=== PATIENT | male | born 1965 | race Caucasian/White ===

== ENCOUNTER → 2022-01-26 | Outpatient (CLI) | payer OTHER ==
[2022-01-26 12:35] LABS: BUN/CREATININE RATIO 16 (0-10)
== END ==
LOC: LAB 10:45
PROVIDERS: Internal Medicine Nephrology
DX: R80.9 Proteinuria, unspecified (principal); M60.9 Myositis, unspecified; E83.52 Hypercalcemia
CPT/HCPCS: 36415; 80053; 82550; 82570; 83970; 84156

== ENCOUNTER → 2022-01-30 | Outpatient (CLI) | payer OTHER | LOC: EXRD 11:03 | DX: R80.9 Proteinuria, unspecified (principal); N28.1 Cyst of kidney, acquired | CPT/HCPCS: 76775 ==

== ENCOUNTER → 2022-03-28 | Outpatient (CLI) | payer OTHER | LOC: KOH-I 02-26 10:00 | DX: E23.7 Disorder of pituitary gland, unspecified (principal) | CPT/HCPCS: 76536 ==

== ENCOUNTER → 2022-04-16 | Outpatient (CLI) | payer OTHER ==
[2022-04-16 09:10] LABS: HEMOGLOBIN 12.6 gm/dl (14.0-17.5); RED BLOOD COUNT 4.61 M/UL (4.20-5.50); WHITE BLOOD COUNT 10.8 K/UL (4.5-11.0)
== END ==
LOC: LAB 08:40
PROVIDERS: Nurse Practitioner Primary Care
DX: I10 Essential (primary) hypertension (principal); R31.9 Hematuria, unspecified; E78.5 Hyperlipidemia, unspecified; E11.9 Type 2 diabetes mellitus without complications; R80.9 Proteinuria, unspecified
CPT/HCPCS: 36415; 85025; 85610; 85730

== ENCOUNTER → 2022-04-18 | Outpatient (CLI) | payer OTHER | LOC: CT 04-11 11:30 | DX: F17.210 Nicotine dependence, cigarettes, uncomplicated (principal); R22.1 Localized swelling, mass and lump, neck; E86.0 Dehydration; R59.0 Localized enlarged lymph nodes | CPT/HCPCS: 70492; 71271; 96360; 96361; Q9967 ==

== ENCOUNTER → 2022-04-19 | Outpatient (CLI) | payer OTHER | LOC: US 09:37 | DX: R22.1 Localized swelling, mass and lump, neck (principal); N18.9 Chronic kidney disease, unspecified; E55.9 Vitamin D deficiency, unspecified; E03.9 Hypothyroidism, unspecified; R80.9 Proteinuria, unspecified; E78.5 Hyperlipidemia, unspecified ==

== ENCOUNTER → 2022-05-18 | Outpatient (CLI) | payer OTHER ==
[~2022-05-18] MED LIST: AMMONIUM LACTATE; ASPIRIN81 MG PO; BACLOFEN10 MG PO; BENZTROPINE MESY1 MG PO; BEVESPI AEROS10.7 GM INH; CRESTOR20 MG PO; GLUCOPHAGE 500500 MG PO; LEVEMIR FL100 UNIT/1 SQ; LIDOCAINE; LOPRESSOR 50 MG50 MG PO; NITROSTAT0.4 MG SL; NOVOLOG FL100 UNIT/1 INJ; PROTONIX40 MG PO; PROVENTIL HFA6.7 GM INH; PROZAC40 MG PO; RAMIPRIL2.5 MG PO; RISPERDAL37.5 MG/2 IM; RISPERIDONE1 MG PO; SEROQUEL200 MG PO; SYNTHROID50 MCG PO; TRADJENTA5 MG PO; TYLENOL EXTRA500 MG PO; VASCEPA1 GM PO; VITAMIN D3125 MCG PO; VOLTAREN ARTHRI20 GM TOP; [UNRECOGNIZED DRUG - OTHER]; [UNRECOGNIZED DRUG - OTHER] MC
[2022-05-18 14:47] LABS: HEMOGLOBIN 13.2 gm/dl (14.0-17.5); RED BLOOD COUNT 4.72 M/UL (4.20-5.50); WHITE BLOOD COUNT 15.5 K/UL (4.5-11.0)
[2022-05-18 15:09] LABS: BUN/CREATININE RATIO 14 (0-10)
== END ==
LOC: OPSV2 12:30
PROVIDERS: Anesthesiology
DX: Z01.818 Encounter for other preprocedural examination (principal)
CPT/HCPCS: 80048; 85025; 93005

== ENCOUNTER → 2022-05-22 | Day surgery (SDC) | payer OTHER | END | disposition home or self-care (01) | LOC: OR 07:11 | DX: C77.0 Secondary and unspecified malignant neoplasm of lymph nodes of head, face and neck (principal); C80.1 Malignant (primary) neoplasm, unspecified; I10 Essential (primary) hypertension; E78.5 Hyperlipidemia, unspecified; J45.909 Unspecified asthma, uncomplicated; K21.9 Gastro-esophageal reflux disease without esophagitis; E66.01 Morbid (severe) obesity due to excess calories; F20.9 Schizophrenia, unspecified; E11.9 Type 2 diabetes mellitus without complications; E07.9 Disorder of thyroid, unspecified; Z88.6 Allergy status to analgesic agent; Z79.82 Long term (current) use of aspirin; Z79.4 Long term (current) use of insulin; Z79.899 Other long term (current) drug therapy; Z68.34 Body mass index [BMI] 34.0-34.9, adult | CPT/HCPCS: 82962; J0690; J1100; J2001; J2250; J2405; J2704; J3010 ==

== ENCOUNTER → 2022-06-21 | Day surgery (SDC) | payer OTHER | END | disposition home or self-care (01) | LOC: OR 05:30 | DX: C76.0 Malignant neoplasm of head, face and neck (principal); I10 Essential (primary) hypertension; J44.9 Chronic obstructive pulmonary disease, unspecified; E11.42 Type 2 diabetes mellitus with diabetic polyneuropathy; E78.00 Pure hypercholesterolemia, unspecified; K21.9 Gastro-esophageal reflux disease without esophagitis; E66.01 Morbid (severe) obesity due to excess calories; E07.9 Disorder of thyroid, unspecified; F20.9 Schizophrenia, unspecified; F17.210 Nicotine dependence, cigarettes, uncomplicated; Z68.33 Body mass index [BMI] 33.0-33.9, adult; Z79.82 Long term (current) use of aspirin; Z79.4 Long term (current) use of insulin; Z79.891 Long term (current) use of opiate analgesic; Z79.899 Other long term (current) drug therapy; Z88.6 Allergy status to analgesic agent | CPT/HCPCS: 71045; 77001; 82962; C1769; C1788; J0690; J1100; J1642; J2001; J2405; J2704; J3010; J7040 ==

== ENCOUNTER → 2022-06-29 | Outpatient (CLI) | payer OTHER | LOC: MRI 06-26 09:30 | DX: C80.1 Malignant (primary) neoplasm, unspecified (principal); C77.0 Secondary and unspecified malignant neoplasm of lymph nodes of head, face and neck | CPT/HCPCS: 74183; A9577 ==

== ENCOUNTER → 2022-07-05 | Outpatient (CLI) | payer OTHER | LOC: US 08:16 | DX: C77.0 Secondary and unspecified malignant neoplasm of lymph nodes of head, face and neck (principal); C80.1 Malignant (primary) neoplasm, unspecified; R22.1 Localized swelling, mass and lump, neck | CPT/HCPCS: 76705 ==

== ENCOUNTER → 2022-08-07 | Outpatient (CLI) | payer OTHER | LOC: KOH-I 15:22 | DX: R80.9 Proteinuria, unspecified (principal); N28.1 Cyst of kidney, acquired | CPT/HCPCS: 76775 ==